=== PATIENT | female | born 1950 | race Caucasian/White ===

== ENCOUNTER 2018-02-22 19:08 | Emergency (ER) | payer MEDICARE, OTHER, SELFPAY ==
[2018-02-22 19:09] VITALS: BP 115/81; PULSE 77; RESP 14; TEMP 37; O2SAT 97; BMI 23.3
[2018-02-22] MEDS: Diphth,Pertuss(Acell),Tet Vac 0.5 ML Vial IM (19:33)
[2018-02-22] MEDS: Naproxen 250 MG Tablet 500 MG PO (19:33)
--- NOTE | 2018-02-22 20:56 | ED.VISSUMM ---
- ER Visit Summary Date of Service: 02/22/18 Chief Complaint: Laceration secondary to dog bite right long finger History of Present Illness: The patient is a 67 F who is right-handed. Presents with laceration volar surface right long finger over the volar fat pad. She was playing with her puppy. She states she snagged his canine resulting in tear volar surface right long finger. Last tetanus shot was 7 years ago. She denies paresthesia, anesthesia motors. She denies any antibiotic allergy. She denies limitation of movement. She has no other complaints. Physical Examination: There is a jagged flap-like laceration volar surface right long finger secondary to dog tooth. There is no subungual hematoma noted. Capillary refill is normal. Sensation is normal. Flexor digitorum superficialis and flexor digitorum profundus are intact. Test Results: Since this is considered a dirty wound immunization was updated. She did receive first dose of Augmentin in the department. Emergency Department Course and Treatment: Patient digit was anesthetized 1% lidocaine. The wound was irrigated with 300 cc normal saline. Using 5-0 Ethilon several interrupted sutures were placed to approximate the wound but not cosmetically close the wound. Treatment Plan: Wound check in 2 days. Since she is new to the area with no primary care physician was referred to Dr. Nielsen. Disposition: Discharged to home with outpatient follow-up and prescription for Augmentin for 5 days Impression: Flap laceration right long finger secondary to dog bite This note was generated with [employer] dictation software. It may contain incorrect words, spelling, and punctuation that were not noted in review of the chart prior to signing ED Disposition - Plan for ED Patient: Disposition: Home or Assisted Living Chief Complaint: Bite Instructions: ED Bite Dog Prescriptions: Amoxicillin/Potassium Clav [Augmentin 875-125 Tablet] 1 ea PO BID #10 tab Referrals: [facility] Doctor,Out of [Primary Care Provider] - Shorty Nielsen MD [STAFF PHYSICIAN] - 2 Days for wound check Additional Instructions: Clean wound with peroxide and Q-tip 3 times a day then apply bacitracin ointment. Wound check in 2 days and sutures out in 10 days.
--- NOTE | 2018-02-22 21:01 | ED.DCSUM_ITS ---
- ER Visit Summary Date of Service: 02/22/18 Chief Complaint: Laceration secondary to dog bite right long finger History of Present Illness: The patient is a 67 F who is right-handed. Presents with laceration volar surface right long finger over the volar fat pad. She was playing with her puppy. She states she snagged his canine resulting in tear volar surface right long finger. Last tetanus shot was 7 years ago. She denies paresthesia, anesthesia motors. She denies any antibiotic allergy. She denies limitation of movement. She has no other complaints. Physical Examination: There is a jagged flap-like laceration volar surface right long finger secondary to dog tooth. There is no subungual hematoma noted. Capillary refill is normal. Sensation is normal. Flexor digitorum superficialis and flexor digitorum profundus are intact. Test Results: Since this is considered a dirty wound immunization was updated. She did receive first dose of Augmentin in the department. Emergency Department Course and Treatment: Patient digit was anesthetized 1% lidocaine. The wound was irrigated with 300 cc normal saline. Using 5-0 Ethilon several interrupted sutures were placed to approximate the wound but not cosmetically close the wound. Treatment Plan: Wound check in 2 days. Since she is new to the area with no primary care physician was referred to Dr. Nielsen. Disposition: Discharged to home with outpatient follow-up and prescription for Augmentin for 5 days Impression: Flap laceration right long finger secondary to dog bite This note was generated with [employer] dictation software. It may contain incorrect words, spelling, and punctuation that were not noted in review of the chart prior to signing ED Disposition - Plan for ED Patient: Disposition: Home or Assisted Living Chief Complaint: Bite Instructions: ED Bite Dog Prescriptions: Amoxicillin/Potassium Clav [Augmentin 875-125 Tablet] 1 ea PO BID #10 tab Referrals: [facility] Doctor,Out of [Primary Care Provider] - Shorty Nielsen MD [STAFF PHYSICIAN] - 2 Days for wound check Additional Instructions: Clean wound with peroxide and Q-tip 3 times a day then apply bacitracin ointment. Wound check in 2 days and sutures out in 10 days.
[2018-02-22] MEDS: Amox/Clavulanate 875 MG Tablet PO (21:13)
== END 2018-02-22 21:22 | disposition home or self-care (01) ==
PROVIDERS: Emergency Provider Emergency Medicine
DX: S61.212A Laceration without foreign body of right middle finger without damage to nail, initial encounter (principal); Z23 Encounter for immunization; W54.0XXA Bitten by dog, initial encounter; Y93.89 Activity, other specified; Y92.009 Unspecified place in unspecified non-institutional (private) residence as the place of occurrence of the external cause; Y99.8 Other external cause status
CPT/HCPCS: 12002; 90715; 99284

== ENCOUNTER 2018-12-31 07:46 | Emergency (ER) | payer MEDICARE, OTHER, SELFPAY ==
[2018-12-31 07:48] VITALS: BP 160/82; PULSE 70; RESP 16; TEMP 36.4; O2SAT 99; BMI 23.2
--- NOTE | 2018-12-31 08:05 | ED.VISSUMM ---
- ER Visit Summary Date of Service: 12/31/18 Chief Complaint: Left hand injury History of Present Illness: The patient is a 68 F who presents with left hand injury that occurred 2 days ago. Patient states she got her hand caught between a post and another hard object. Patient states the pain is worse with movement. Patient describes pain as throbbing. Patient denies any paresthesias or weakness. Patient denies any other injuries. Physical Examination: Vital signs are stable. Patient is afebrile. Patient is in no acute distress. Musculoskeletal exam reveals tenderness, edema, and ecchymosis over the left fourth MCP joint. There is no deformity noted. Range of motion was limited in flexion and extension of the third, fourth, and fifth fingers secondary to pain. Sensation was intact to light touch in all digits. Capillary refill is less than 2 seconds in all digits. Test Results: X-rays of the left hand were obtained. There is no acute fracture noted. This was interpreted by the radiologist and reviewed by myself. Emergency Department Course and Treatment: Patient was given a prescription. Patient was instructed to ice and elevate the left hand. Patient was instructed to take Tylenol or ibuprofen as needed for any pain. Patient was instructed to follow-up with her primary care physician in 5-7 days. Patient understood and was agreeable with the plan. All questions were answered. Disposition: Discharge home Impression: 1. Left hand contusion This note was generated with [employer] dictation software. It may contain incorrect words, spelling, and punctuation that were not noted in review of the chart prior to signing ED Disposition - Plan for ED Patient: Disposition: Home or Assisted Living Diagnosis: Contusion of left hand, initial encounter Instructions: ED Contusion Hand Referrals: [facility] Wood,Out of [Primary Care Provider] - 5-7 Days
--- NOTE | 2018-12-31 08:15 | RAD_ITS ---
STUDY: X-RAY - LEFT HAND REASON FOR EXAM: Female, 68 years old. Injury over 2, 3 and fourth metacarpals. TECHNIQUE: 3 view(s) of the hand. COMPARISON: None. FINDINGS: Normal radiocarpal articulation. Normal distal radioulnar joint. Normal visualized carpal bones. Normal carpal articulations Normal carpometacarpal articulation of the thumb. Normal second through fifth carpometacarpal joints. Normal metacarpi. Normal metacarpophalangeal joint of the thumb. Normal interphalangeal joint of the thumb. Normal proximal and distal phalanges of the thumb. Normal metacarpophalangeal joints of the second through fifth fingers. Normal proximal and distal interphalangeal joints of the second through fifth fingers. Normal phalanges of the second through fifth fingers. The soft tissue structures are unremarkable. RAD/Hand Min 3 Views IMPRESSION: Normal x-ray examination of the left hand. Electronically Signed: Sidney Phipps MD at 8:33 EDT , Service support ,
== END 2018-12-31 09:08 | disposition home or self-care (01) ==
PROVIDERS: Emergency Provider Emergency Medicine
DX: S60.222A Contusion of left hand, initial encounter (principal); M19.90 Unspecified osteoarthritis, unspecified site; W23.0XXA Caught, crushed, jammed, or pinched between moving objects, initial encounter; Y93.89 Activity, other specified; Y92.89 Other specified places as the place of occurrence of the external cause; Y99.8 Other external cause status
CPT/HCPCS: 73130; 99282

== ENCOUNTER 2019-08-20 17:11 | Emergency (ER) | payer MEDICARE, OTHER, SELFPAY ==
[2019-08-20 17:12] VITALS: BP 166/84; PULSE 92; RESP 16; TEMP 36.1; O2SAT 98; BMI 23.2
[2019-08-20 17:15] VITALS: BP 166/84; PULSE 92; RESP 16; TEMP 36.1; O2SAT 98
--- NOTE | 2019-08-20 17:26 | RAD_ITS ---
STUDY: X-RAY - RIGHT HAND REASON FOR EXAM: Female, 69 years old. Trauma TECHNIQUE: 3 view(s) of the hand. COMPARISON: None. FINDINGS: Normal radiocarpal articulation. Normal distal radioulnar joint. Normal visualized carpal bones. Normal carpal articulations Normal carpometacarpal articulation of the thumb. Normal second through fifth carpometacarpal joints. Normal metacarpi. Normal metacarpophalangeal joint of the thumb. Normal interphalangeal joint of the thumb. Normal proximal and distal phalanges of the thumb. Normal metacarpophalangeal joints of the second through fifth fingers. Normal proximal and distal interphalangeal joints of the second through fifth fingers. Normal phalanges of the second through fifth fingers. The soft tissue structures are unremarkable. RAD/Hand Min 3 Views IMPRESSION: Normal x-ray examination of the hand. Electronically Signed: Sky Davey, at 17:43 EST Tel , Service support ,
--- NOTE | 2019-08-20 17:28 | ED.VISSUMM ---
- ER Visit Summary Date of Service: 08/20/19 Chief Complaint: Right hand injury History of Present Illness: The patient is a 69 F who states that yesterday a knife she was using slipped and entered the volar aspect of her right thenar eminence. She states that it went deep. Today she notes redness swelling and increased warmth. She is worried about infection. She notes her last tetanus was a couple years ago. Physical Examination: There is swelling redness and slight increase of warmth over the thenar eminence of the right hand. There is a 0.5 cm laceration the wound edges well approximated. There is a very faint 1 inch long area of streaking over the volar aspect of the distal right wrist. Normal tendon function. Neurovascular intact. Test Results: Right hand films were obtained. I do not see any foreign body or defects on the first metacarpal. Emergency Department Course and Treatment: Patient will be started on Keflex. She was instructed on elevation. Return if worsening or concerns. She was advised that majority of these cases will resolve with oral antibiotics but some will require admission get better. Impression: 1. Cellulitis right hand This note was generated with [employer] dictation software. It may contain incorrect words, spelling, and punctuation that were not noted in review of the chart prior to signing ED Disposition - Plan for ED Patient: Disposition: Home or Assisted Living Instructions: Cellulitis Prescriptions: Cephalexin [Keflex] 500 mg PO Q6 #40 cap Transmission Status: Pending to [id number] [facility] Referrals: [facility] Doctor,Out of [Primary Care Provider] - As Needed
== END 2019-08-20 17:53 | disposition home or self-care (01) ==
LOC: ED 17:46
PROVIDERS: Emergency Provider Emergency Medicine
DX: L03.113 Cellulitis of right upper limb (principal)
CPT/HCPCS: 73130; 99282